=== PATIENT | male | born 1970 | race Caucasian/White ===

== ENCOUNTER 2018-02-10 10:40 | Emergency (ER) | payer SELFPAY ==
[2018-02-10] MEDS ORDERED: Sodium Chloride 0.9% 1,000 ML IV ONE (11:32)
[2018-02-10] MEDS ORDERED: Ondansetron 4 MG/2 ML SDV IVPUSH ONE (11:32)
[2018-02-10] MEDS ORDERED: Ketorolac 30 MG/ML SDV IVPUSH ONE (11:32)
--- NOTE | 2018-02-10 11:33 | EDM.PDOC ---
ED HPI GENERAL MEDICAL PROBLEM - General Chief Complaint: Abdominal Pain Stated Complaint: ABDOMINAL PAIN Time Seen by Provider: 02/10/18 11:32 Source of Information: Reports: Patient - History of Present Illness INITIAL COMMENTS - FREE TEXT/NARRATIVE: HISTORY AND PHYSICAL: History of present illness: []Patient presents with right flank pain for a week he does have history of passing ureteral stones in the remote past is been 20 years since his last similar pain no fever chills sweats he has had a couple episodes of vomiting last night pain is 2 out of 10 after Toradol Review of systems: As per history of present illness and below otherwise all systems reviewed and negative. Past medical history: As per history of present illness and as reviewed below otherwise noncontributory. Surgical history: As per history of present illness and as reviewed below otherwise noncontributory. Social history: No reported history of drug or alcohol abuse. Family history: As per history of present illness and as reviewed below otherwise noncontributory. Physical exam: HEENT: Atraumatic, normocephalic, pupils reactive, negative for conjunctival pallor or scleral icterus, mucous membranes moist, throat clear, neck supple, nontender, trachea midline. Lungs: Clear to auscultation, breath sounds equal bilaterally, chest nontender. Heart: S1S2, regular, negative for clicks, rubs, or JVD. Abdomen: Soft, nondistended, nontender. Negative for masses or hepatosplenomegaly. Negative for costovertebral tenderness. Pelvis: Stable nontender. Genitourinary: Deferred. Rectal: Deferred. Extremities: Atraumatic, negative for cords or calf pain. Neurovascular unremarkable. Neuro: Awake, alert, oriented. Cranial nerves II through XII unremarkable. Cerebellum unremarkable. Motor and sensory unremarkable throughout. Exam nonfocal. Diagnostics: [CBC CMP UA lipase troponin ]CT abdomen pelvis contrast Therapeutics: [Liter normal saline bolus Zofran 8 mg IV Toradol 30 mg IV ] [place] Zofran Flomax Keflex prophylaxis Strain urine I did make several attempts to contact urology ER referral for urology Impression: 5 mm ureteral stone on the right 1 week Definitive disposition and diagnosis as appropriate pending reevaluation and review of above. RIght FLank Pain Score (Numeric/FACES): 3 - Related Data Allergies Allergy/AdvReac Type Severity Reaction Status Date / Time grass pollen-perennial rye, Allergy Other Verified 06/15/14 09:44 standar [grass poll-perennial rye,std] Home Meds: Home Meds traMADol [Ultram] 1 - 2 tab PO Q4H PRN 02/10/18 [History] Past Medical History Genitourinary History: Reports: Renal Calculus - Infectious Disease History Infectious Disease History: Reports: Chicken Pox, Shingles Social & Family History - Family History Family Medical History: Noncontributory - Tobacco Use Smoking Status *Q: Never Smoker Second Hand Smoke Exposure: No - Caffeine Use Caffeine Use: Reports: Tea - Recreational Drug Use Recreational Drug Use: No ED ROS GENERAL - Review of Systems Review Of Systems: See Below ED EXAM, GENERAL - Physical Exam Exam: See Below Course - Vital Signs Last Recorded V/S: Last Vital Signs Temp 98.0 F 02/10/18 11:01 Pulse 86 02/10/18 11:01 Resp 16 02/10/18 11:01 BP 121/69 02/10/18 11:01 Pulse Ox 99 02/10/18 11:01 - Orders/Labs/Meds Orders: Active Orders 24 hr Category Date Time Status CULTURE URINE [RM] Stat Lab 02/10/18 13:09 Received Tamsulosin [Flomax] Med 02/10/18 13:19 Once 0.4 mg PO ONETIME ONE Medication Orders Tamsulosin HCl (Flomax) 0.4 mg PO ONETIME ONE Last Admin: 02/10/18 13:42 Dose: 0.4 mg Labs: Laboratory Tests 02/10/18 02/10/18 02/10/18 Range/Units 11:25 11:25 11:26 WBC 7.58 (4.0-11.0) K/uL RBC 4.84 (4.50-5.90) M/uL Hgb 13.9 (13.0-17.0) g/dL Hct 41.1 (38.0-50.0) % MCV 84.9 (80.0-98.0) fL MCH 28.7 (27.0-32.0) pg MCHC 33.8 (31.0-37.0) g/dL RDW Std Deviation 44.7 (28.0-62.0) fl RDW Coeff of [place] 14 (11.0-15.0) % Plt Count 184 (150-400) K/uL MPV 10.20 (7.40-12.00) fL Neut % (Auto) 64.7 (48.0-80.0) % Lymph % (Auto) 20.2 (16.0-40.0) % [place] % (Auto) 12.1 (0.0-15.0) % Eos % (Auto) 2.6 (0.0-7.0) % Baso % (Auto) 0.4 (0.0-1.5) % Neut # (Auto) 4.9 (1.4-5.7) K/uL Lymph # (Auto) 1.5 (0.6-2.4) K/uL [place] # (Auto) 0.9 H (0.0-0.8) K/uL Eos # (Auto) 0.2 (0.0-0.7) K/uL Baso # (Auto) 0.0 (0.0-0.1) K/uL Nucleated RBC % 0.0 /100WBC Nucleated RBCs # 0 K/uL Sodium 140 (136-148) mmol/L Potassium 3.6 (3.5-5.1) mmol/L Chloride 104 (98-107) mmol/L Carbon Dioxide 26.0 (21.0-32.0) mmol/L BUN 12 (7.0-18.0) mg/dL Creatinine 1.4 H (0.8-1.3) mg/dL Est Cr Clr Drug Dosing 70.06 mL/min Estimated GFR (MDRD) 53.9 ml/min Glucose 124 H (74-106) mg/dL Calcium 8.8 (8.5-10.1) mg/dL Total Bilirubin 0.8 (0.2-1.0) mg/dL AST 13 L (15-37) IU/L ALT 26 (14-63) IU/L Alkaline Phosphatase 57 (46-116) U/L Troponin I < 0.050 (0.000-0.056) ng/mL Total Protein 7.6 (6.4-8.2) g/dL Albumin 3.8 (3.4-5.0) g/dL Globulin 3.8 H (2.0-3.5) g/dL Albumin/Globulin Ratio 1.0 L (1.3-2.8) Lipase 140 (73-393) U/L Urine Color YELLOW Urine Appearance CLEAR Urine pH 6.0 (5.0-8.0) Ur Specific [place] 1.020 (1.001-1.035) Urine Protein 30 (NEGATIVE) mg/dL Urine Glucose (UA) NEGATIVE (NEGATIVE) mg/dL Urine Ketones NEGATIVE (NEGATIVE) mg/dL Urine Occult Blood MODERATE (NEGATIVE) Urine Nitrite NEGATIVE (NEGATIVE) Urine Bilirubin NEGATIVE (NEGATIVE) Urine Urobilinogen 0.2 (<2.0) EU/dL Ur Leukocyte Esterase NEGATIVE (NEGATIVE) Urine RBC 1-4 (0-2/HPF) Urine WBC 2-4 (0-5/HPF) Ur Epithelial Cells OCCASIONAL (NONE-FEW) Amorphous Sediment LIGHT (NEGATIVE) Urine Bacteria FEW (NEGATIVE) Hyaline Casts 1-2 (0-2/LPF) Urine Mucus MODERATE (NONE-MOD) Meds: Medications Generic Name Dose Route Start Last Admin Trade Name Freq PRN Reason Stop Dose Admin Tamsulosin HCl 0.4 mg 02/10/18 13:19 02/10/18 13:42 Flomax PO 0.4 mg ONETIME ONE Administration Discontinued Medications Generic Name Dose Route Start Last Admin Trade Name Freq PRN Reason Stop Dose Admin Sodium Chloride 1,000 mls @ 999 mls/hr 02/10/18 11:32 02/10/18 11:50 Normal Saline IV 02/10/18 12:32 999 mls/hr STAT ONE Administration Ketorolac Tromethamine 30 mg 02/10/18 11:32 02/10/18 11:51 Toradol IVPUSH 02/10/18 11:33 30 mg ONETIME ONE Administration Methylprednisolone Sodium Succinate 125 mg 02/10/18 13:19 02/10/18 13:42 Solu-Medrol IVPUSH 02/10/18 13:20 125 mg ONETIME ONE Administration Ondansetron HCl 8 mg 02/10/18 11:32 02/10/18 11:54 Zofran IVPUSH 02/10/18 11:33 8 mg ONETIME ONE Administration Departure - Departure Time of Disposition: 14:30 Disposition: Home, Self-Care 01 Condition: Good Clinical Impression: Ureteral stone - Discharge Information Referrals: Daren Higgins MD [Primary Care Provider] - Forms: ED Department Discharge Additional Instructions: Medication as prescribed return if symptoms persist or worsen or new concerning such as fever; temperature over 100.4 with prompt immediate return to ER Urology referral provided [facility] - Urology [address] [place] [id number] The following information is given to patients seen in the emergency department who are being discharged to home. This information is to outline your options for follow-up care. We provide all patients seen in our emergency department with a follow-up referral. The need for follow-up, as well as the timing and circumstances, are variable depending upon the specifics of your emergency department visit. If you don't have a primary care physician on staff, we will provide you with a referral. We always advise you to contact your personal physician following an emergency department visit to inform them of the circumstance of the visit and for follow-up with them and/or the need for any referrals to a consulting specialist. The emergency department will also refer you to a specialist when appropriate. This referral assures that you have the opportunity for follow-up care with a specialist. All of these measure are taken in an effort to provide you with optimal care, which includes your follow-up. Under all circumstances we always encourage you to contact your private physician who remains a resource for coordinating your care. When calling for follow-up care, please make the office aware that this follow-up is from your recent emergency room visit. If for any reason you are refused follow-up, please contact the [facility] emergency department at and asked to speak to the emergency department charge nurse. - My Orders Last 24 Hours: My Active Orders 02/10/18 13:09 CULTURE URINE [RM] Stat 02/10/18 13:19 Tamsulosin [Flomax] 0.4 mg PO ONETIME ONE - Assessment/Plan Last 24 Hours: My Active Orders 02/10/18 13:09 CULTURE URINE [RM] Stat 02/10/18 13:19 Tamsulosin [Flomax] 0.4 mg PO ONETIME ONE
[2018-02-10 12:04] LABS: CHLORIDE,CL 104 mmol/L (98-107); SODIUM,NA 140 mmol/L (136-148)
[2018-02-10] MEDS ORDERED: methylPREDNISolone Sodium Succinate 125 MG/2 ML SDV IVPUSH ONE (13:19)
[2018-02-10] MEDS ORDERED: Tamsulosin 0.4 MG Cap.ER PO ONE (13:19)
--- NOTE | 2018-02-10 13:19 | CT ---
CT of the abdomen and pelvis without contrast. HISTORY: Pain TECHNIQUE: Axial CT images were obtained of the abdomen and pelvis without contrast. Coronal and sagi ttal reconstructions obtained. FINDINGS: The lung bases are clear, no pleural effusion. Several tiny hepatic hypodensities are noted likely represent cysts. Spleen, adrenal glands, and panc reas appear unremarkable for noncontrast examination. The gallbladder appears normal. There is no bu lky retroperitoneal lymphadenopathy. No abdominal ascites. There is a 5 mm obstructing stone within the proximal right ureter with [id number] proximal hyd ronephrosis. Otherwise tiny nonobstructing nephrolithiasis noted. The large and small bowel are normal in caliber without evidence of obstruction. The appendix appears normal. Mild diverticulosis without evidence of diverticulitis. There is no bulky pelvic lymphadenop athy. No free fluid. No free air. The urinary bladder appears normal. Prostate is mildly prominent. Mild subchondral sclerosis noted within the hips bilaterally. IMPRESSION: 1. There is a 5 mm obstructing stone within the proximal right ureter. 2. Diverticulosis without evidence of diverticulitis. 3. Nonobstructing nephrolithiasis.
== END 2018-02-10 14:45 | disposition home or self-care (01) ==
LOC: MW.ED 10:40
DX: N20.2 Calculus of kidney with calculus of ureter (principal); Z91.09 Other allergy status, other than to drugs and biological substances
CPT/HCPCS: 36415; 74176; 80053; 81001; 83690; 84484; 85025; 87086; 96361; 96374; 96375; 99284; A9270; J1885; J2405; J2930; J7040

== ENCOUNTER 2018-02-16 08:16 | Day surgery (SDC) | payer SELFPAY ==
[~2018-02-16 08:16] MED LIST: Dexamethasone 4 MG/ML 5 ML MDV ONE; Lactated Ringers 1,000 ML IV SCH; Lidocaine 1% 0 ML ONE; Midazolam 1 MG/ML 2 ML SDV ONE; Ondansetron 4 MG/2 ML SDV ONE; Propofol 200 MG/20 ML SDV ONE; Sodium Chloride 0.9% 10 ML Syringe FLUSH PRN; Sodium Chloride 0.9% 2.5 ML Syringe FLUSH PRN; ceFAZolin 2 GM in Premix Bag 1 BAG IV ONE; ceFAZolin/Dextrose,Iso-Osmotic 2 GM/50 ML Duplex Bag IV ONE; fentaNYL 250 MCG/5 ML SDV ONE
[2018-02-16] MEDS ORDERED: Iopamidol 408 MG/ML 50 ML SDV ONE (08:22)
--- NOTE | 2018-02-16 09:01 | PCM.PREANE ---
Preanesthetic Assessment - Anesthesia/Transfusion/Family Hx Anesthesia History: No Prior Anesthesia Family History of Anesthesia Reaction: No Transfusion History: No Prior Transfusion(s) - Review of Systems General: No Symptoms Pulmonary: No Symptoms Cardiovascular: No Symptoms Gastrointestinal: No Symptoms Neurological: No Symptoms Other: Reports: None - Physical Assessment NPO Status Date: 02/15/18 O2 Sat by Pulse Oximetry: 97 Respiratory Rate: 16 Vital Signs: Last Vital Signs Temp 36.9 C 02/16/18 08:40 Pulse 75 02/16/18 08:40 Resp 16 02/16/18 08:40 BP 158/84 H 02/16/18 08:40 Pulse Ox 97 02/16/18 08:40 Height: 1.8 m Weight: 107.048 kg ASA Class: 2 Mental Status: Alert & Oriented x3 Airway Class: Mallampati = 1 Dentition: Reports: Normal Dentition ROM/Head Extension: Full Lungs: Clear to Auscultation, Normal Respiratory Effort Cardiovascular: Regular Rate, Regular Rhythm - Allergies Allergies/Adverse Reactions: Allergies Allergy/AdvReac Type Severity Reaction Status Date / Time grass pollen-perennial rye, Allergy Other Verified 06/15/14 09:44 standar [grass poll-perennial rye,std] - Anesthesia Plan Pre-Op Medication Ordered: None - Acknowledgements Anesthesia Type Planned: General Anesthesia Pt an Appropriate Candidate for the Planned Anesthesia: Yes Additional Comments: PMH: seasonal allergies, asthma only as a child PLAN GET PreAnesthesia Questionnaire Respiratory History: Reports: Asthma Other Respiratory History: hx of asthma as a child- mostly allergy related- has not had an inhaler for many years Gastrointestinal History: Reports: Other (See Below) Other Gastrointestinal History: occasional heartburn Genitourinary History: Reports: Renal Calculus Other Genitourinary History: passed a kidney stone about 20 years ago Neurological History: Reports: Other (See Below) Other Neuro History: hx of motion sickness Endocrine/Metabolic History: Reports: Obesity/BMI 30+ - Infectious Disease History Infectious Disease History: Reports: Chicken Pox, Shingles - SUBSTANCE USE Smoking Status *Q: Never Smoker Recreational Drug Use History: No - HOME MEDS Home Medications: Home Meds Hydrocodone/Acetaminophen [[place] 7.5-325 Tablet] 1 - 2 tab PO Q4H PRN 02/13/18 [ History] Ondansetron HCl [Zofran] 8 mg PO BID PRN 02/13/18 [History] Tamsulosin [Flomax] 0.8 mg PO BEDTIME 02/13/18 [History] - CURRENT (IN HOUSE) MEDS Current Meds: Current Medications Lactated Ringer's (Ringers, Lactated) 1,000 mls @ 100 mls/hr IV ASDIRECTED BA Last Admin: 02/16/18 08:51 Dose: 100 mls/hr Sodium Chloride (Saline Flush) 10 ml FLUSH ASDIRECTED PRN PRN Reason: Keep Vein Open Sodium Chloride (Saline Flush) 2.5 ml FLUSH ASDIRECTED PRN PRN Reason: Keep Vein Open Discontinued Medications Cefazolin Sodium/Dextrose (Ancef) Confirm Administered Dose 2 gm IV .STK-MED ONE Stop: 02/16/18 07:31 Cefazolin Sodium/Dextrose (Ancef) Confirm Administered Dose 2 gm IV .STK-MED ONE Stop: 02/16/18 08:12 Dexamethasone (Dexamethasone) Confirm Administered Dose 20 mg .ROUTE .STK-MED ONE Stop: 02/16/18 07:22 Fentanyl (Sublimaze) Confirm Administered Dose 250 mcg .ROUTE .STK-MED ONE Stop: 02/16/18 07:20 Fentanyl (Sublimaze) Confirm Administered Dose 250 mcg .ROUTE .STK-MED ONE Stop: 02/16/18 08:12 Cefazolin Sodium/Dextrose 2 gm (/ Premix) 50 mls @ 100 mls/hr IV ONCALL ONE Stop: 02/16/18 00:30 Lidocaine HCl (Xylocaine-Mpf 1%) Confirm Administered Dose 5 mls @ as directed .ROUTE .STK-MED ONE Stop: 02/16/18 07:22 Lidocaine HCl (Xylocaine-Mpf 1%) Confirm Administered Dose 5 mls @ as directed .ROUTE .STK-MED ONE Stop: 02/16/18 08:12 Iopamidol (Isovue-200 (41%)) Confirm Administered Dose 50 ml .ROUTE .STK-MED ONE Stop: 02/16/18 08:23 Midazolam HCl (Versed 1 Mg/Ml) Confirm Administered Dose 2 mg .ROUTE .STK-MED ONE Stop: 02/16/18 07:20 Midazolam HCl (Versed 1 Mg/Ml) Confirm Administered Dose 2 mg .ROUTE .STK-MED ONE Stop: 02/16/18 08:12 Ondansetron HCl (Zofran) Confirm Administered Dose 4 mg .ROUTE .STK-MED ONE Stop: 02/16/18 07:22 Ondansetron HCl (Zofran) Confirm Administered Dose 4 mg .ROUTE .STK-MED ONE Stop: 02/16/18 08:12 Propofol (Diprivan 20 Ml) Confirm Administered Dose 200 mg .ROUTE .STK-MED ONE Stop: 02/16/18 07:20 Propofol (Diprivan 20 Ml) Confirm Administered Dose 200 mg .ROUTE .STK-MED ONE Stop: 02/16/18 08:12
[2018-02-16] MEDS ORDERED: Neostigmine Methylsulfate 1 MG/ML 5 ML Syringe ONE (10:51)
[2018-02-16] MEDS ORDERED: Dexamethasone 4 MG/ML 5 ML MDV ONE (10:52)
[2018-02-16] MEDS ORDERED: Glycopyrrolate 0.2 MG/ML SDV ONE (10:52)
[2018-02-16] MEDS ORDERED: Desflurane 240 ML Bottle ONE (10:58)
[2018-02-16] MEDS ORDERED: Metoprolol Tartrate 5 MG/5 ML SDV ONE (12:14)
[2018-02-16] MEDS: fentaNYL 100 MCG/2 ML SDV IVPUSH PRN ×2 (12:50→12:55)
--- NOTE | 2018-02-16 12:57 | PCM.POSTAN ---
POST ANESTHESIA ASSESSMENT - MENTAL STATUS Mental Status: Alert, Oriented - RESPIRATORY Respiratory Status: Respiratory Rate WNL, Airway Patent, O2 Saturation Stable - CARDIOVASCULAR CV Status: Pulse Rate WNL, Blood Pressure Stable - GASTROINTESTINAL GI Status: No Symptoms - PAIN Pain Score: 3 - POST OP HYDRATION Hydration Status: Adequate & Stable
--- NOTE | 2018-02-16 14:01 | PCM48HPAN ---
Post Anesthesia Note - EVALUATION WITHIN 48HRS OF ANESTHETIC Vital Signs in Normal Range: Yes Patient Participated in Evaluation: Yes Respiratory Function Stable: Yes Airway Patent: Yes Cardiovascular Function Stable: Yes Hydration Status Stable: Yes Pain Control Satisfactory: Yes Nausea and Vomiting Control Satisfactory: Yes Mental Status Recovered: Yes Resp Rate: 16
[2018-02-16] MEDS ORDERED: Acetaminophen/HYDROcodone 325-7.5 MG Tab PO PRN (14:10)
--- NOTE | 2018-02-16 14:56 | OR ---
SURGEON: Jaleesa Yeboah M.D. DATE OF PROCEDURE: 02/16/2018 PREOPERATIVE DIAGNOSIS: Right mid ureteral stone, 5.3 mm. POSTOPERATIVE DIAGNOSIS: Right mid ureteral stone, 5.3 mm. OPERATION: Right ureteroscopy, laser lithotripsy, stone removal, and double-J stent placement. DESCRIPTION OF PROCEDURE: The patient was given general anesthesia. He was in dorsal lithotomy position. Prepped and draped in sterile drapes. Cystourethroscopy was done and that was normal. The Glidewire was advanced alongside the stone all the way up into the renal pelvis. The Accordion was advanced above the stone and opened. The lower ureter was dilated using a UroMax II balloon dilator to approximately 15-[place]. The area just below the stone was also narrow, so that was dilated. A rigid ureteroscope was attempted, but that would not pass, so a flexible ureteroscope was advanced over a guidewire all the way up to the stone which was then broken up into 3 or 4 pieces. These were all taken out. With that done, the Accordion was opened up and removed. A guidewire was advanced over which a 6-[place] 26 centimeter double-J stent was placed. The bladder was emptied, and the patient was moved to recovery room in good condition. PLAN: I will see him in the office in 2 weeks for cystoscopy and double-J stent removal. MARICHUY / ANDREY /[id number]
--- NOTE | 2018-02-16 15:16 | CR ---
EXAMINATION: Abdomen HISTORY: Kidney stone COMPARISON: 02/10/2018 TECHNIQUE: AP views FINDINGS: Again noted is a small 4 mm stone projecting over the region of the mid right ureter. There is a punctate nonobstructing stone projecting over the upper pole of the left kidney. Nonobstructive bowel gas pattern. No organomegaly. Osseous structures appear normal. IMPRESSION: 1. Stable calculus projecting over the mid right ureter, likely unchanged. 2. Punctate nonobstructing right renal stone.
--- NOTE | 2018-02-16 15:55 | CR ---
EXAMINATION: Ureteroscopy HISTORY: Stone removal COMPARISON: Same day radiographs TECHNIQUE: 5 fluoroscopic images provided. FINDINGS/IMPRESSION: Operative control film demonstrates removal of a mid right ureteral stone and walter bsequent stent placement.
[2018-02-17] MEDS ORDERED: Ondansetron 4 MG/2 ML SDV ONE (08:52)
[2018-02-17] MEDS ORDERED: fentaNYL 250 MCG/5 ML SDV ONE (08:52)
[2018-02-17] MEDS ORDERED: Midazolam 1 MG/ML 2 ML SDV ONE (08:52)
[2018-02-17] MEDS ORDERED: Propofol 200 MG/20 ML SDV ONE (08:56)
[2018-02-17] MEDS ORDERED: Dexamethasone 4 MG/ML 5 ML MDV ONE (10:05)
[2018-02-17] MEDS ORDERED: Furosemide 40 MG/4 ML VIAL ONE (10:49)
== END 2018-02-16 14:40 | disposition home or self-care (01) ==
LOC: MW.SDS 08:16
PROVIDERS: ATTEND Urology
DX: N20.1 Calculus of ureter (principal); J45.909 Unspecified asthma, uncomplicated; E66.9 Obesity, unspecified; Z68.30 Body mass index [BMI] 30.0-30.9, adult; Z87.442 Personal history of urinary calculi; Z79.899 Other long term (current) drug therapy
CPT/HCPCS: 52356; 74018; 76001; A9270; J0690; J1100; J2250; J2405; J2704; J3010; J3490; J7120; Q9966; C1769; C2625

== ENCOUNTER 2018-02-17 04:30 | Observation (INO) | payer SELFPAY ==
--- NOTE | 2018-02-17 04:43 | EDM.PDOC ---
ED HPI GENERAL MEDICAL PROBLEM - General Chief Complaint: Abdominal Pain Stated Complaint: PAIN FROM KIDNEY PAIN SURGERY Time Seen by Provider: 02/17/18 04:42 Source of Information: Reports: Patient History Limitations: Reports: No Limitations - History of Present Illness INITIAL COMMENTS - FREE TEXT/NARRATIVE: HISTORY AND PHYSICAL: History of present illness: 47-year-old male presenting to the emergency department with chief complaint of right flank pain and pain with urination status post laser lithotripsy 02/16/18. Patient states that he had laser lithotripsy yesterday by Dr. Yeboah around 2: 30 pm. After the surgery he was feeling significantly improved but did have some burning with urination but overall much improved. This evening he began to have increased right lower flank pain radiating into his right groin. Also states that he has had increased pain with urination. Has past some blood clots. States it is just shooting stabbing pain. It is constant at 4 at 10 and 10 out of 10 when he urinates. He denies any associated fevers but has been sweaty. He currently is on Keflex as well as Flomax by Dr. Yeboah. Denies any bloody stool or dark tarry stools. Patient currently denies any chest pain, palpitations, shortness of breath, syncopal episodes, episodes. On exam there is no left CVA tenderness, There is significant right lower quadrant pain extending into the right groin. Abdomen soft patient is guarding with palpation in the right lower artery. CBC showed leukocytosis of 15,000. Patient was started on Cipro IV as well as blood cultures and lactate taken. Urinalysis showed some worsening of kidney function from previous. With a creatinine of 1.7 up from 1.4. GFR also decreased to 43 CT of the abdomen did show interval placement of a right double-J ureteral stent. Proximal portion of the stent appeared lower than expected and is in the proximal right ureter rather than right intrarenal collecting system. In addition no urolith was identified along the course of the stent. There was a significant amount of gas and fluid in the retroperitoneum with thickening of throat is fashion in the lateral conal fascia. Did talk to radiologist who suspected that ureteral injury was possible. Did call Dr. Hinton, urologist, and advised him of the findings. He is on his way to the emergency room emergently to see the patient. Review of systems: As per history of present illness and below otherwise all systems reviewed and negative. Past medical history: As per history of present illness and as reviewed below otherwise noncontributory. Surgical history: As per history of present illness and as reviewed below otherwise noncontributory. Social history: No reported history of drug or alcohol abuse. Family history: As per history of present illness and as reviewed below otherwise noncontributory. Physical exam: HEENT: Atraumatic, normocephalic, pupils reactive, negative for conjunctival pallor or scleral icterus, mucous membranes moist, throat clear, neck supple, nontender, trachea midline. Lungs: Clear to auscultation, breath sounds equal bilaterally, chest nontender. Heart: S1S2, regular, negative for clicks, rubs, or JVD. Abdomen: Soft, nondistended, RLQ and right flank pain on palpation. Negative for masses or hepatosplenomegaly. Negative for costovertebral tenderness. Pelvis: Stable nontender. Genitourinary: Deferred. Rectal: Deferred. Extremities: Atraumatic, negative for cords or calf pain. Neurovascular unremarkable. Neuro: Awake, alert, oriented. Cranial nerves II through XII unremarkable. Cerebellum unremarkable. Motor and sensory unremarkable throughout. Exam nonfocal. Diagnostics: CBC, CMP, UA/UC, CT abdomen and pelvis Therapeutics: 1 L normal saline, 50 g fentanyl IV 1, 4 mg zofran IV x1, 2mg Dilaudid IV 1, Cipro 400 mg IV 1 Impression: Right lower quadrant pain status post laser lithotripsy uretral injury Plan: Dr. Yeboah took over care of patient and he was admitted to his service for surgery. Definitive disposition and diagnosis as appropriate pending reevaluation and review of above. Pelvic Pain Score (Numeric/FACES): 2 - Related Data Allergies Allergy/AdvReac Type Severity Reaction Status Date / Time grass pollen-perennial rye, Allergy Other Verified 02/17/18 04:45 standar [grass poll-perennial rye,std] Home Meds: Home Meds Hydrocodone/Acetaminophen [[place] 7.5-325 Tablet] 1 - 2 tab PO Q4H PRN 02/13/18 [ History] Ondansetron HCl [Zofran] 8 mg PO BID PRN 02/13/18 [History] Tamsulosin [Flomax] 0.8 mg PO BEDTIME 02/13/18 [History] cephALEXin [Keflex] 1 cap PO BID 02/17/18 [History] Past Medical History Respiratory History: Reports: Asthma Other Respiratory History: hx of asthma as a child- mostly allergy related- has not had an inhaler for many years Gastrointestinal History: Reports: Other (See Below) Other Gastrointestinal History: occasional heartburn Genitourinary History: Reports: Renal Calculus Other Genitourinary History: passed a kidney stone about 20 years ago Neurological History: Reports: Other (See Below) Other Neuro History: hx of motion sickness Endocrine/Metabolic History: Reports: Obesity/BMI 30+ - Infectious Disease History Infectious Disease History: Reports: Chicken Pox, Shingles Social & Family History - Family History Family Medical History: Noncontributory - Caffeine Use Caffeine Use: Reports: Tea ED ROS GENERAL - Review of Systems Review Of Systems: ROS reveals no pertinent complaints other than HPI. ED EXAM, GENERAL - Physical Exam Exam: See Below Course - Vital Signs Last Recorded V/S: Last Vital Signs Temp 98.4 F 02/18/18 16:00 Pulse 80 02/18/18 16:00 Resp 16 02/18/18 16:00 BP 130/76 02/18/18 16:00 Pulse Ox 96 02/18/18 16:00 - Orders/Labs/Meds Labs: Laboratory Tests 02/17/18 02/17/18 02/17/18 Range/Units 05:04 05:04 05:20 WBC 15.26 H (4.0-11.0) K/uL RBC 4.67 (4.50-5.90) M/uL Hgb 13.4 (13.0-17.0) g/dL Hct 39.8 (38.0-50.0) % MCV 85.2 (80.0-98.0) fL MCH 28.7 (27.0-32.0) pg MCHC 33.7 (31.0-37.0) g/dL RDW Std Deviation 45.5 (28.0-62.0) fl RDW Coeff of Clara 15 (11.0-15.0) % Plt Count 230 (150-400) K/uL MPV 9.90 (7.40-12.00) fL Neut % (Auto) 88.0 H (48.0-80.0) % Lymph % (Auto) 6.0 L (16.0-40.0) % [place] % (Auto) 5.9 (0.0-15.0) % Eos % (Auto) 0.0 (0.0-7.0) % Baso % (Auto) 0.1 (0.0-1.5) % Neut # (Auto) 13.4 H (1.4-5.7) K/uL Lymph # (Auto) 0.9 (0.6-2.4) K/uL [place] # (Auto) 0.9 H (0.0-0.8) K/uL Eos # (Auto) 0.0 (0.0-0.7) K/uL Baso # (Auto) 0.0 (0.0-0.1) K/uL Nucleated RBC % 0.0 /100WBC Nucleated RBCs # 0 K/uL Lactate (0.20-2.00) mmol/L Sodium 135 L (136-148) mmol/L Potassium 4.1 (3.5-5.1) mmol/L Chloride 102 (98-107) mmol/L Carbon Dioxide 25.6 (21.0-32.0) mmol/L BUN 19 H (7.0-18.0) mg/dL Creatinine 1.7 H (0.8-1.3) mg/dL Est Cr Clr Drug Dosing 57.69 mL/min Estimated GFR (MDRD) 43.1 ml/min Glucose 151 H (74-106) mg/dL Calcium 9.0 (8.5-10.1) mg/dL Total Bilirubin 0.8 (0.2-1.0) mg/dL AST 8 L (15-37) IU/L ALT 15 (14-63) IU/L Alkaline Phosphatase 61 (46-116) U/L Total Protein 7.5 (6.4-8.2) g/dL Albumin 3.9 (3.4-5.0) g/dL Globulin 3.6 H (2.0-3.5) g/dL Albumin/Globulin Ratio 1.1 L (1.3-2.8) Urine Color YELLOW Urine Appearance CLOUDY Urine pH 6.0 (5.0-8.0) Ur Specific [place] 1.020 (1.001-1.035) Urine Protein 100 (NEGATIVE) mg/dL Urine Glucose (UA) NEGATIVE (NEGATIVE) mg/dL Urine Ketones 40 H (NEGATIVE) mg/dL Urine Occult Blood LARGE H (NEGATIVE) Urine Nitrite NEGATIVE (NEGATIVE) Urine Bilirubin NEGATIVE (NEGATIVE) Urine Urobilinogen 0.2 (<2.0) EU/dL Ur Leukocyte Esterase SMALL (NEGATIVE) Urine RBC 105-110 (0-2/HPF) Urine WBC 1-4 (0-5/HPF) Ur Epithelial Cells RARE (NONE-FEW) Urine Bacteria RARE (NEGATIVE) 02/17/18 Range/Units 06:25 WBC (4.0-11.0) K/uL RBC (4.50-5.90) M/uL Hgb (13.0-17.0) g/dL Hct (38.0-50.0) % MCV (80.0-98.0) fL MCH (27.0-32.0) pg MCHC (31.0-37.0) g/dL RDW Std Deviation (28.0-62.0) fl RDW Coeff of Clara (11.0-15.0) % Plt Count (150-400) K/uL MPV (7.40-12.00) fL Neut % (Auto) (48.0-80.0) % Lymph % (Auto) (16.0-40.0) % [place] % (Auto) (0.0-15.0) % Eos % (Auto) (0.0-7.0) % Baso % (Auto) (0.0-1.5) % Neut # (Auto) (1.4-5.7) K/uL Lymph # (Auto) (0.6-2.4) K/uL [place] # (Auto) (0.0-0.8) K/uL Eos # (Auto) (0.0-0.7) K/uL Baso # (Auto) (0.0-0.1) K/uL Nucleated RBC % /100WBC Nucleated RBCs # K/uL Lactate 1.1 (0.20-2.00) mmol/L Sodium (136-148) mmol/L Potassium (3.5-5.1) mmol/L Chloride (98-107) mmol/L Carbon Dioxide (21.0-32.0) mmol/L BUN (7.0-18.0) mg/dL Creatinine (0.8-1.3) mg/dL Est Cr Clr Drug Dosing mL/min Estimated GFR (MDRD) ml/min Glucose (74-106) mg/dL Calcium (8.5-10.1) mg/dL Total Bilirubin (0.2-1.0) mg/dL AST (15-37) IU/L ALT (14-63) IU/L Alkaline Phosphatase (46-116) U/L Total Protein (6.4-8.2) g/dL Albumin (3.4-5.0) g/dL Globulin (2.0-3.5) g/dL Albumin/Globulin Ratio (1.3-2.8) Urine Color Urine Appearance Urine pH (5.0-8.0) Ur Specific [place] (1.001-1.035) Urine Protein (NEGATIVE) mg/dL Urine Glucose (UA) (NEGATIVE) mg/dL Urine Ketones (NEGATIVE) mg/dL Urine Occult Blood (NEGATIVE) Urine Nitrite (NEGATIVE) Urine Bilirubin (NEGATIVE) Urine Urobilinogen (<2.0) EU/dL Ur Leukocyte Esterase (NEGATIVE) Urine RBC (0-2/HPF) Urine WBC (0-5/HPF) Ur Epithelial Cells (NONE-FEW) Urine Bacteria (NEGATIVE) Meds: Medications Discontinued Medications Generic Name Dose Route Start Last Admin Trade Name Freq PRN Reason Stop Dose Admin Acetaminophen 650 mg 02/17/18 14:50 02/17/18 23:01 Tylenol PO 650 mg Q4H PRN Administration Headache Bacitracin 1 gm 02/17/18 14:00 02/18/18 17:50 Bacitracin Oint TOP 1 gm TID BA Administration Belladonna Alkaloids/Opium 1 supp 02/17/18 11:29 B & O Supprettes No. 15a RECTAL Q6H PRN Bladder Spasms Desflurane Confirm 02/18/18 11:42 Suprane Administered 02/18/18 11:43 Dose 240 ml .ROUTE .STK-MED ONE Ephedrine Sulfate Confirm 02/18/18 11:34 Ephedrine Sulfate Administered 02/18/18 11:35 Dose 50 mg .ROUTE .STK-MED ONE Fentanyl 50 mcg 02/17/18 05:06 02/17/18 05:12 Sublimaze IVPUSH 02/17/18 05:07 50 mcg ONETIME ONE Administration Fentanyl Confirm 02/18/18 09:18 Sublimaze Administered 02/18/18 09:19 Dose 100 mcg .ROUTE .STK-MED ONE Fentanyl Confirm 02/18/18 11:19 Sublimaze Administered 02/18/18 11:20 Dose 100 mcg .ROUTE .STK-MED ONE Glycopyrrolate Confirm 02/18/18 11:38 Robinul Administered 02/18/18 11:39 Dose 0.2 mg .ROUTE .STK-MED ONE Glycopyrrolate Confirm 02/18/18 11:38 Robinul Administered 02/18/18 11:39 Dose 0.2 mg .ROUTE .STK-MED ONE Hydromorphone HCl 2 mg 02/17/18 05:25 02/17/18 05:31 Dilaudid IVPUSH 02/17/18 05:26 2 mg ONETIME ONE Administration Hydromorphone HCl 2 mg 02/17/18 06:52 02/17/18 07:00 Dilaudid IVPUSH 02/17/18 06:53 2 mg ONETIME ONE Administration Hydromorphone HCl 2 mg 02/17/18 12:53 Dilaudid IVPUSH Q4H PRN pain Hydromorphone HCl 2 mg 02/17/18 13:15 02/18/18 09:27 Dilaudid IVPUSH 2 mg Q4H PRN Administration pain Sodium Chloride 1,000 mls @ 999 mls/hr 02/17/18 05:11 02/17/18 05:18 Normal Saline IV 02/17/18 06:11 999 mls/hr STAT ONE Administration Ciprofloxacin/Dextrose 400 mg/ 200 mls @ 200 mls/hr 02/17/18 06:00 02/18/18 17:50 Premix IV 200 mls/hr Q12H BA Administration Sodium Chloride 100 mls @ 125 mls/hr 02/17/18 07:00 Normal Saline IV ASDIRECTED BA Sodium Chloride 1,000 mls @ 125 mls/hr 02/17/18 07:15 02/17/18 07:02 Normal Saline IV 125 mls/hr ASDIRECTED BA Administration Potassium Chloride/Dextrose/Sod Cl 1,000 mls @ 125 mls/hr 02/17/18 11:30 08/03 06:49 D5 1/2 Ns W/ 20 Meq/L Kcl IV 125 mls/hr ASDIRECTED BA Administration Cefazolin Sodium/Dextrose 1 gm 50 mls @ 100 mls/hr 02/17/18 13:00 02/17/18 13 :19 / Premix IV 100 mls/hr Q8H BA Administration Tobramycin 100 mg/ Dextrose/ 52.5 mls @ 105 mls/hr 02/17/18 14:00 02/18/18 14 :06 Water IV 105 mls/hr Q12H BA Administration Lidocaine HCl Confirm 02/18/18 09:19 Xylocaine-Mpf 1% Administered 02/18/18 09:20 Dose 5 mls @ as directed .ROUTE .STK-MED ONE Iopamidol Confirm 02/17/18 09:26 Isovue-200 (41%) Administered 02/17/18 09:27 Dose 50 ml .ROUTE .STK-MED ONE Iopamidol Confirm 02/18/18 09:16 Isovue-200 (41%) Administered 02/18/18 09:17 Dose 50 ml .ROUTE .STK-MED ONE Lidocaine HCl Confirm 02/18/18 09:16 Xylocaine 2% Jelly Administered 02/18/18 09:17 Dose 30 ml .ROUTE .STK-MED ONE Methylene Blue Confirm 02/17/18 10:39 Provayblue Administered 02/17/18 10:40 Dose 50 mg .ROUTE .STK-MED ONE Midazolam HCl Confirm 02/18/18 09:17 Versed 1 Mg/Ml Administered 02/18/18 09:18 Dose 2 mg .ROUTE .STK-MED ONE Neostigmine Methylsulfate Confirm 02/18/18 11:38 Neostigmine Administered 02/18/18 11:39 Dose 5 mg .ROUTE .STK-MED ONE Neostigmine Methylsulfate Confirm 02/18/18 11:38 Neostigmine Administered 02/18/18 11:39 Dose 5 mg .ROUTE .STK-MED ONE Ondansetron HCl Confirm 02/17/18 05:22 02/17/18 05:36 Zofran Administered 02/17/18 05:23 Not Given Dose 4 mg .ROUTE .STK-MED ONE Ondansetron HCl 4 mg 02/17/18 05:27 02/17/18 05:31 Zofran IVPUSH 02/17/18 05:28 4 mg ONETIME ONE Administration Ondansetron HCl 4 mg 02/17/18 14:50 Zofran IVPUSH Q4H PRN Nausea/Vomiting Ondansetron HCl Confirm 02/18/18 09:19 Zofran Administered 02/18/18 09:20 Dose 4 mg .ROUTE .STK-MED ONE Propofol Confirm 02/18/18 09:20 Diprivan 20 Ml Administered 02/18/18 09:21 Dose 200 mg .ROUTE .STK-MED ONE Rocuronium [place] Confirm 02/18/18 09:20 Zemuron Administered 02/18/18 09:21 Dose 100 mg .ROUTE .STK-MED ONE Tobramycin 160 mg 02/17/18 10:00 Nebcin .ROUTE 02/17/18 10:01 .STK-MED ONE Departure - Departure Time of Disposition: 01:15 (02/18/[address] Yeboah) Disposition: Admitted As Inpatient 64 Condition: Fair Clinical Impression: Right flank pain Urethral injury Qualifiers: Encounter type: initial encounter Qualified Code(s): S37.30XA - Unspecified injury of urethra, initial encounter - Discharge Information
[2018-02-17] MEDS ORDERED: fentaNYL 100 MCG/2 ML SDV IVPUSH ONE (05:06)
[2018-02-17] MEDS ORDERED: Sodium Chloride 0.9% 1,000 ML IV ONE (05:11)
[2018-02-17] MEDS ORDERED: Ondansetron 4 MG/2 ML SDV ONE (05:22)
[2018-02-17] MEDS ORDERED: HYDROmorphone 1 MG/ML Syringe IVPUSH ONE (05:25)
[2018-02-17] MEDS ORDERED: Ondansetron 4 MG/2 ML SDV IVPUSH ONE (05:27)
[2018-02-17] MEDS: Ciprofloxacin in D5W 400 MG in Premix Bag 1 BAG IV SCH ×4 (06:44→19:15)
[2018-02-17] MEDS ORDERED: HYDROmorphone 2 MG/ML SDV IVPUSH ONE (06:52)
[2018-02-17] MEDS ORDERED: Sodium Chloride 0.9% 100 ML IV SCH (07:00)
[2018-02-17] MEDS ORDERED: Sodium Chloride 0.9% 1,000 ML IV SCH (07:15)
--- NOTE | 2018-02-17 09:11 | PCM.PREANE ---
Preanesthetic Assessment - Procedure Proposed Procedure: Cystoureteroscopy with stent removal/replacement - Anesthesia/Transfusion/Family Hx Anesthesia History: Prior Anesthesia Without Reaction Transfusion History: No Prior Transfusion(s) Intubation History: Unknown - Review of Systems General: Other (adominal / back pain) Pulmonary: No Symptoms (no adult asthma hx) Cardiovascular: No Symptoms Gastrointestinal: Abdominal Pain (low/back) Neurological: No Symptoms Other: Reports: Throat Pain (minor irritation from yesterday OET) - Physical Assessment NPO Status Date: 02/16/18 NPO Status Time: 18:00 (ice chips this am) O2 Sat by Pulse Oximetry: 98 Respiratory Rate: 16 Vital Signs: Last Vital Signs Temp 98 F 02/17/18 08:07 Pulse 99 02/17/18 08:07 Resp 16 02/17/18 08:07 BP 138/77 02/17/18 08:07 Pulse Ox 98 02/17/18 08:07 Height: 6 ft Weight: 231 lb 8 oz ASA Class: 2E Mental Status: Alert & Oriented x3 Airway Class: Mallampati = 2 Dentition: Reports: Normal Dentition Thyro-Mental Finger Breadths: 3 (white) Mouth Opening Finger Breadths: 3 ROM/Head Extension: Full Lungs: Clear to Auscultation, Normal Respiratory Effort Cardiovascular: Regular Rate, Regular Rhythm, No Murmurs - Lab Values: Laboratory Last Values WBC 15.26 K/uL (4.0-11.0) H 02/17/18 05:04 RBC 4.67 M/uL (4.50-5.90) 02/17/18 05:04 Hgb 13.4 g/dL (13.0-17.0) 02/17/18 05:04 Hct 39.8 % (38.0-50.0) 02/17/18 05:04 MCV 85.2 fL (80.0-98.0) 02/17/18 05:04 MCH 28.7 pg (27.0-32.0) 02/17/18 05:04 MCHC 33.7 g/dL (31.0-37.0) 02/17/18 05:04 RDW Std Deviation 45.5 fl (28.0-62.0) 02/17/18 05:04 RDW Coeff of Clara 15 % (11.0-15.0) 02/17/18 05:04 Plt Count 230 K/uL (150-400) 02/17/18 05:04 MPV 9.90 fL (7.40-12.00) 02/17/18 05:04 Neut % (Auto) 88.0 % (48.0-80.0) H 02/17/18 05:04 Lymph % (Auto) 6.0 % (16.0-40.0) L 02/17/18 05:04 [place] % (Auto) 5.9 % (0.0-15.0) 02/17/18 05:04 Eos % (Auto) 0.0 % (0.0-7.0) 02/17/18 05:04 Baso % (Auto) 0.1 % (0.0-1.5) 02/17/18 05:04 Neut # (Auto) 13.4 K/uL (1.4-5.7) H 02/17/18 05:04 Lymph # (Auto) 0.9 K/uL (0.6-2.4) 02/17/18 05:04 [place] # (Auto) 0.9 K/uL (0.0-0.8) H 02/17/18 05:04 Eos # (Auto) 0.0 K/uL (0.0-0.7) 02/17/18 05:04 Baso # (Auto) 0.0 K/uL (0.0-0.1) 02/17/18 05:04 Nucleated RBC % 0.0 /100WBC 02/17/18 05:04 Nucleated RBCs # 0 K/uL 02/17/18 05:04 Lactate 1.1 mmol/L (0.20-2.00) 02/17/18 06:25 Sodium 135 mmol/L (136-148) L 02/17/18 05:04 Potassium 4.1 mmol/L (3.5-5.1) 02/17/18 05:04 Chloride 102 mmol/L (98-107) 02/17/18 05:04 Carbon Dioxide 25.6 mmol/L (21.0-32.0) 02/17/18 05:04 BUN 19 mg/dL (7.0-18.0) H 02/17/18 05:04 Creatinine 1.7 mg/dL (0.8-1.3) H 02/17/18 05:04 Est Cr Clr Drug Dosing 57.69 mL/min 02/17/18 05:04 Estimated GFR (MDRD) 43.1 ml/min 02/17/18 05:04 Glucose 151 mg/dL (74-106) H 02/17/18 05:04 Calcium 9.0 mg/dL (8.5-10.1) 02/17/18 05:04 Total Bilirubin 0.8 mg/dL (0.2-1.0) 02/17/18 05:04 AST 8 IU/L (15-37) L 02/17/18 05:04 ALT 15 IU/L (14-63) 02/17/18 05:04 Alkaline Phosphatase 61 U/L (46-116) 02/17/18 05:04 Total Protein 7.5 g/dL (6.4-8.2) 02/17/18 05:04 Albumin 3.9 g/dL (3.4-5.0) 02/17/18 05:04 Globulin 3.6 g/dL (2.0-3.5) H 02/17/18 05:04 Albumin/Globulin Ratio 1.1 (1.3-2.8) L 02/17/18 05:04 Urine Color YELLOW 02/17/18 05:20 Urine Appearance CLOUDY 02/17/18 05:20 Urine pH 6.0 (5.0-8.0) 02/17/18 05:20 Ur Specific [place] 1.020 (1.001-1.035) 02/17/18 05:20 Urine Protein 100 mg/dL (NEGATIVE) 02/17/18 05:20 Urine Glucose (UA) NEGATIVE mg/dL (NEGATIVE) 02/17/18 05:20 Urine Ketones 40 mg/dL (NEGATIVE) H 02/17/18 05:20 Urine Occult Blood LARGE (NEGATIVE) H 02/17/18 05:20 Urine Nitrite NEGATIVE (NEGATIVE) 02/17/18 05:20 Urine Bilirubin NEGATIVE (NEGATIVE) 02/17/18 05:20 Urine Urobilinogen 0.2 EU/dL (<2.0) 02/17/18 05:20 Ur Leukocyte Esterase SMALL (NEGATIVE) 02/17/18 05:20 Urine RBC 105-110 (0-2/HPF) 02/17/18 05:20 Urine WBC 1-4 (0-5/HPF) 02/17/18 05:20 Ur Epithelial Cells RARE (NONE-FEW) 02/17/18 05:20 Urine Bacteria RARE (NEGATIVE) 02/17/18 05:20 - Allergies Allergies/Adverse Reactions: Allergies Allergy/AdvReac Type Severity Reaction Status Date / Time grass pollen-perennial rye, Allergy Other Verified 02/17/18 04:45 standar [grass poll-perennial rye,std] - Blood Blood Available: No Product(s) Available: None - Acknowledgements Anesthesia Type Planned: General Anesthesia (OET) Pt an Appropriate Candidate for the Planned Anesthesia: Yes Alternatives and Risks of Anesthesia Discussed w Pt/Guardian: Yes Pt/Guardian Understands and Agrees with Anesthesia Plan: Yes Additional Comments: discussed plan with patient and spouse PreAnesthesia Questionnaire Respiratory History: Reports: Asthma Other Respiratory History: hx of asthma as a child- mostly allergy related- has not had an inhaler for many years Gastrointestinal History: Reports: Other (See Below) Other Gastrointestinal History: occasional heartburn Genitourinary History: Reports: Renal Calculus Other Genitourinary History: passed a kidney stone about 20 years ago Neurological History: Reports: Other (See Below) Other Neuro History: hx of motion sickness Endocrine/Metabolic History: Reports: Obesity/BMI 30+ - Infectious Disease History Infectious Disease History: Reports: Chicken Pox, Shingles - SUBSTANCE USE Smoking Status *Q: Never Smoker Tobacco Use Within Last Twelve Months: No Second Hand Smoke Exposure: No Recreational Drug Use History: No - HOME MEDS Home Medications: Home Meds Hydrocodone/Acetaminophen [[place] 7.5-325 Tablet] 1 - 2 tab PO Q4H PRN 02/13/18 [ History] Ondansetron HCl [Zofran] 8 mg PO BID PRN 02/13/18 [History] Tamsulosin [Flomax] 0.8 mg PO BEDTIME 02/13/18 [History] cephALEXin [Keflex] 1 cap PO BID 02/17/18 [History] - CURRENT (IN HOUSE) MEDS Current Meds: Current Medications Ciprofloxacin/Dextrose 400 mg/ (Premix) 200 mls @ 200 mls/hr IV Q12H BA Last Admin: 02/17/18 06:44 Dose: 200 mls/hr Sodium Chloride (Normal Saline) 1,000 mls @ 125 mls/hr IV ASDIRECTED [facility] Last Admin: 02/17/18 07:02 Dose: 125 mls/hr Discontinued Medications Fentanyl (Sublimaze) 50 mcg IVPUSH ONETIME ONE Stop: 02/17/18 05:07 Last Admin: 02/17/18 05:12 Dose: 50 mcg Hydromorphone HCl (Dilaudid) 2 mg IVPUSH ONETIME ONE Stop: 02/17/18 05:26 Last Admin: 02/17/18 05:31 Dose: 2 mg Hydromorphone HCl (Dilaudid) 2 mg IVPUSH ONETIME ONE Stop: 02/17/18 06:53 Last Admin: 02/17/18 07:00 Dose: 2 mg Sodium Chloride (Normal Saline) 1,000 mls @ 999 mls/hr IV STAT ONE Stop: 02/17/18 06:11 Last Admin: 02/17/18 05:18 Dose: 999 mls/hr Sodium Chloride (Normal Saline) 100 mls @ 125 mls/hr IV ASDIRECTED [facility] Ondansetron HCl (Zofran) Confirm Administered Dose 4 mg .ROUTE .STK-MED ONE Stop: 02/17/18 05:23 Last Admin: 02/17/18 05:36 Dose: Not Given Ondansetron HCl (Zofran) 4 mg IVPUSH ONETIME ONE Stop: 02/17/18 05:28 Last Admin: 02/17/18 05:31 Dose: 4 mg
[2018-02-17] MEDS ORDERED: Iopamidol 408 MG/ML 50 ML SDV ONE (09:26)
--- NOTE | 2018-02-17 09:48 | CT ---
EXAM DATE: 02/17/18 PATIENT'S AGE: 47 Patient: MARCIO DIAZ Facility: [place], [place] Site . Site : [id number] Study: CT Abdomen/Pelvis [id number]/2/2018 6:10:02 AM Ordering Physician: Doctor Rloon Final Report: INDICATION: pain, surgery 02-16-2018 to remove right kidney stone and place stent. HISTORY: Recent surgery to remove right ureteral stone and place stent. Pain. COMPARISON: CT of the abdomen and pelvis 02/10/2018. TECHNIQUE: CT of the abdomen pelvis. No intravenous contrast. Coronal/sagittal reconstruction images. FINDINGS: Lung bases: There is no pleural or pericardial effusion. The heart size is normal. There is atelectasis at both lung bases. There is no basilar pneumothorax. Abdomen/pelvis: The hepatic morphology is normal. There is no solid hepatic mass. Low-dense hepatic lesions are too small to further characterize, but most likely benign cysts. Spleen size is normal. There is a low-density splenic lesion also present , too small to further characterize. This measures 7 mm on image 27, series 201. There is no adrenal mass. 3-4 mm stone in the left kidney on image 43, series 201. There is a right double-J ureteral stent. The proximal portion of the stent is coiled within the proximal ureter, rather than the right intrarenal collecting system. There is a 3 mm calcification along the lower pole of the right kidney, which is stable, image 69, series 201. The ureteral stone is not identified along the course of the ureteral stent. There is significant fat stranding and fluid in the right para renal space, with thickening of Gerota`s fascia and the lateroconal fascia. There is also retroperitoneal gas adjacent to the right kidney and right ureter. The distal portion of the stent appears appropriately positioned. There is no contralateral urolith or left-sided hydronephrosis. Prostatic calcifications. There is diverticulosis of the colon. There are no findings for diverticulitis. No evidence for a small bowel or colonic obstruction. Abdominal aortic aneurysm. No adenopathy by size criteria in the retroperitoneum, small bowel mesentery, or pelvis. The bone windows demonstrate no suspicious lytic or blastic bone lesions. The alignment is preserved. On sagittal reconstruction images, there is a Schmorl`s node present at the superior endplate of L5. There is no acute bone abnormality. IMPRESSION: 1. Interval placement of a right double-J ureteral stent. The proximal portion of the stent appears lower than expected, and is in the proximal right ureter rather than the right intrarenal collecting system. 2. There is no urolith identified along the course of the stent. Presumably, the patient has undergone lithotripsy at the time of the procedure. There is a significant amount of gas and fluid in the retroperitoneum, with thickening of Gerota`s fascia and the lateroconal fascia. Ureteral injury is not excluded based on this exam. Urologic consultation is advised. 3. Stable nonobstructive calculus in the left intrarenal collecting system. 4. Case reviewed with Dr. Leon of the emergency department, 02/17/2018, 0635 hours. Dictated by Peter Vargas MD @ 02/17/2018 6:36:07 AM Please note that all CT scans at this facility use dose modulation, iterative reconstruction, and/or weight-based dosing when appropriate to reduce radiation dose to as low as reasonably achievable. Dictated by: Peter Vargas MD @ 02/17/2018 06:36:16 (Electronic Signature) Report Signed by Proxy. [facility]
[2018-02-17] MEDS ORDERED: Methylene Blue 50 MG/10 ML Ampule ONE (10:39)
[2018-02-17] MEDS ORDERED: Belladonna Alkaloids/Opium 16.2-30 MG Supp RECTAL PRN (11:29)
--- NOTE | 2018-02-17 12:09 | PCM.POSTAN ---
POST ANESTHESIA ASSESSMENT - MENTAL STATUS Mental Status: Alert, Oriented - OBSERVATIONS Free Text/Narrative:: To CT for followup exam to confirm stent presence in kidney per Dr Yeboah and Dr Diana order.
--- NOTE | 2018-02-17 12:46 | OR ---
SURGEON: Jaleesa Yeboah M.D. DATE OF PROCEDURE: 02/17/2018 PREOPERATIVE DIAGNOSIS: Ureteral injury. POSTOPERATIVE DIAGNOSIS: Ureteral injury. OPERATIONS: Cystoscopy, double-J stent removal, and the placement of a new double-J stent. DESCRIPTION: The patient was given general anesthesia. He is in dorsal lithotomy position, prepped and draped in sterile drapes. The 25-Romansh cystoscope was introduced in the bladder without difficulty. The double-J stent that was in there was removed. Subsequently, a Glidewire was advanced in the ureter and that appeared to be going outside the ureter and would not go in the right path, so I put the rigid ureteral scope all the way up into the area of trauma and after a few attempts, I was able to get the Glidewire into the right renal pelvis over which then a 6-Romansh 28 cm double-J stent was placed. Positioned into a good degree of certainty, it is in renal pelvis. However, this study will be followed with a CT scan to confirm that because if that is not the case, we will have to put a nephrostomy tube in today. MARICHUY / ANDREY /[id number]
[2018-02-17] MEDS: D5 1/2 NS w/ 20 mEq/L KCl 1,000 ML IV SCH ×2 (12:51→22:09)
[2018-02-17] MEDS ORDERED: HYDROmorphone 4 MG/ML Syringe IVPUSH PRN (12:53)
--- NOTE | 2018-02-17 12:58 | CONS ---
DATE OF CONSULTATION: 02/17/2018 DATE OF : 1970 PRIMARY CARE PHYSICIAN: Daren Higgins M.D. HISTORY OF PRESENT ILLNESS: A 47-year-old presented to the emergency room earlier this morning after having had right ureteroscopy with laser lithotripsy, and double-J stent placement yesterday. At the time of presentation, he was having severe pain. He was treated with Dilaudid. His pain became under control. He had a white blood count of 15,000. His CT scan, which was also done, then showed that the stent is actually outside the upper ureter, it was not in the renal pelvis. There was perirenal and periureteral urinary extravasation. His hemoglobin was normal. His serum creatinine has gone up to 1.7 from 1.4. When the kidney was partially obstructive with the stone compared to two years ago, his creatinine was normal with a GFR of over 60. His GFR today was 47. PHYSICAL EXAMINATION: GENERAL APPEARANCE: Normal. VITAL SIGNS: Normal. He is alert and oriented. His pain appears to be under control. PLAN: I placed a Taylor catheter to make sure that there is no more urine that is being pushed via the stent into the retroperitoneal space and I explained to him that I need to go back to take the current stent out and attempt to put a new double- J stent. If that does not work, then we will go to a percutaneous nephrolithotomy to drain the kidney and left ureter to heal. He understands that. MARICHUY / ANDREY /[id number]
[2018-02-17] MEDS ORDERED: ceFAZolin 1 GM in Premix Bag 1 BAG IV SCH (13:00)
[2018-02-17] MEDS: DEXTROSE 5% IV SCH ×2 (14:01)
[2018-02-17] MEDS: TOBRAMYCIN IV SCH ×2 (14:01)
[2018-02-17] MEDS: WATER IV SCH ×2 (14:01)
[2018-02-17] MEDS: Bacitracin Oint 28.35 GM Tube TOP SCH ×2 (14:09→22:04)
[2018-02-17] MEDS ORDERED: Acetaminophen 325 MG Tab PO PRN (14:50)
[2018-02-17] MEDS ORDERED: Ondansetron 4 MG/2 ML SDV IVPUSH PRN (14:50)
--- NOTE | 2018-02-17 16:50 | CT ---
CT of the abdomen and pelvis without contrast. HISTORY: Ureteral injury TECHNIQUE: Axial CT images were obtained of the abdomen and pelvis without contrast. Coronal and sagi ttal reconstructions obtained. FINDINGS: Dependent atelectasis noted bilaterally. There is a tiny cyst within the left hepatic lobe. The spleen, adrenal glands, and pancreas appear un remarkable for noncontrast examination. The gallbladder appears normal. There is no bulky retroperit barraza lymphadenopathy. Small amount of perirenal, retroperitoneal and fluid within the right pericoli c gutter. There is a right-sided nephroureteral stent noted with the proximal aspect likely just superior to th e renal pelvis. Contrast was administered through the bladder and extravasates within the perirenal s pace. A small nonobstructing left nephrolithiasis. The large and small bowel are normal in caliber without evidence of obstruction. The appendix appears normal. There is no bulky pelvic lymphadenopathy. No free fluid. Small amount of free air is noted w ithin the right periureteral soft tissues. There is a Taylor catheter within the bladder. The visualized osseous structures appear normal. IMPRESSION: 1. An additional stent was placed within the right ureter in a retrograde fashion however the proxima l pigtail appears external to the urinary tract. 2. Small amount of retroperitoneal and free fluid noted, likely extravasation of urine. 3. Small nonobstructing left nephrolithiasis. 4. Mild dependent atelectasis.
[2018-02-17] MEDS: HYDROmorphone 2 MG/ML SDV IVPUSH PRN (19:10)
[2018-02-18] MEDS: DEXTROSE 5% IV SCH ×4 (01:40→14:06)
[2018-02-18] MEDS: TOBRAMYCIN IV SCH ×4 (01:40→14:06)
[2018-02-18] MEDS: WATER IV SCH ×4 (01:40→14:06)
[2018-02-18] MEDS: Ciprofloxacin in D5W 400 MG in Premix Bag 1 BAG IV SCH ×4 (05:51→17:50)
[2018-02-18] MEDS: Bacitracin Oint 28.35 GM Tube TOP SCH ×2 (05:54→17:50)
[2018-02-18 06:39] LABS: CHLORIDE,CL 108 mmol/L (98-107); SODIUM,NA 142 mmol/L (136-148)
[2018-02-18] MEDS: D5 1/2 NS w/ 20 mEq/L KCl 1,000 ML IV SCH (06:49)
--- NOTE | 2018-02-18 08:24 | PCM.PREANE ---
Preanesthetic Assessment - Anesthesia/Transfusion/Family Hx Anesthesia History: Prior Anesthesia Without Reaction Family History of Anesthesia Reaction: No Transfusion History: No Prior Transfusion(s) Intubation History: Unknown - Review of Systems General: No Symptoms Pulmonary: No Symptoms Cardiovascular: No Symptoms Gastrointestinal: No Symptoms Neurological: No Symptoms Other: Reports: None, Throat Pain (minor irritation from yesterday OET) - Physical Assessment NPO Status Date: 02/16/18 NPO Status Time: 18:00 (ice chips this am) O2 Sat by Pulse Oximetry: 95 Respiratory Rate: 19 Vital Signs: Last Vital Signs Temp 37.4 C 02/18/18 04:06 Pulse 72 02/18/18 04:06 Resp 19 02/18/18 04:06 BP 152/88 H 02/18/18 04:06 Pulse Ox 95 02/18/18 04:06 Height: 1.83 m Weight: 105.007 kg ASA Class: 2 Mental Status: Alert & Oriented x3 Airway Class: Mallampati = 1 Dentition: Reports: Normal Dentition ROM/Head Extension: Full Lungs: Clear to Auscultation, Normal Respiratory Effort Cardiovascular: Regular Rate, Regular Rhythm - Lab Values: Laboratory Last Values WBC 11.51 K/uL (4.0-11.0) H 02/18/18 05:50 RBC 4.15 M/uL (4.50-5.90) L 02/18/18 05:50 Hgb 12.0 g/dL (13.0-17.0) L 02/18/18 05:50 Hct 35.9 % (38.0-50.0) L 02/18/18 05:50 MCV 86.5 fL (80.0-98.0) 02/18/18 05:50 MCH 28.9 pg (27.0-32.0) 02/18/18 05:50 MCHC 33.4 g/dL (31.0-37.0) 02/18/18 05:50 RDW Std Deviation 48.0 fl (28.0-62.0) 02/18/18 05:50 RDW Coeff of Clara 15 % (11.0-15.0) 02/18/18 05:50 Plt Count 205 K/uL (150-400) 02/18/18 05:50 MPV 9.80 fL (7.40-12.00) 02/18/18 05:50 Neut % (Auto) 76.6 % (48.0-80.0) 02/18/18 05:50 Lymph % (Auto) 14.9 % (16.0-40.0) L 02/18/18 05:50 [place] % (Auto) 8.3 % (0.0-15.0) 02/18/18 05:50 Eos % (Auto) 0.1 % (0.0-7.0) 02/18/18 05:50 Baso % (Auto) 0.1 % (0.0-1.5) 02/18/18 05:50 Neut # (Auto) 8.8 K/uL (1.4-5.7) H 02/18/18 05:50 Lymph # (Auto) 1.7 K/uL (0.6-2.4) 02/18/18 05:50 [place] # (Auto) 1.0 K/uL (0.0-0.8) H 02/18/18 05:50 Eos # (Auto) 0.0 K/uL (0.0-0.7) 02/18/18 05:50 Baso # (Auto) 0.0 K/uL (0.0-0.1) 02/18/18 05:50 Nucleated RBC % 0.0 /100WBC 02/18/18 05:50 Nucleated RBCs # 0 K/uL 02/18/18 05:50 Lactate 1.1 mmol/L (0.20-2.00) 02/17/18 06:25 Sodium 142 mmol/L (136-148) 02/18/18 05:50 Potassium 4.0 mmol/L (3.5-5.1) 02/18/18 05:50 Chloride 108 mmol/L (98-107) H 02/18/18 05:50 Carbon Dioxide 26.5 mmol/L (21.0-32.0) 02/18/18 05:50 BUN 10 mg/dL (7.0-18.0) 02/18/18 05:50 Creatinine 1.0 mg/dL (0.8-1.3) 02/18/18 05:50 Est Cr Clr Drug Dosing 98.08 mL/min 02/18/18 05:50 Estimated GFR (MDRD) > 60.0 ml/min 02/18/18 05:50 Glucose 142 mg/dL (74-106) H 02/18/18 05:50 Calcium 8.1 mg/dL (8.5-10.1) L 02/18/18 05:50 Total Bilirubin 0.8 mg/dL (0.2-1.0) 02/17/18 05:04 AST 8 IU/L (15-37) L 02/17/18 05:04 ALT 15 IU/L (14-63) 02/17/18 05:04 Alkaline Phosphatase 61 U/L (46-116) 02/17/18 05:04 Total Protein 7.5 g/dL (6.4-8.2) 02/17/18 05:04 Albumin 3.9 g/dL (3.4-5.0) 02/17/18 05:04 Globulin 3.6 g/dL (2.0-3.5) H 02/17/18 05:04 Albumin/Globulin Ratio 1.1 (1.3-2.8) L 02/17/18 05:04 Urine Color YELLOW 02/17/18 05:20 Urine Appearance CLOUDY 02/17/18 05:20 Urine pH 6.0 (5.0-8.0) 02/17/18 05:20 Ur Specific [place] 1.020 (1.001-1.035) 02/17/18 05:20 Urine Protein 100 mg/dL (NEGATIVE) 02/17/18 05:20 Urine Glucose (UA) NEGATIVE mg/dL (NEGATIVE) 02/17/18 05:20 Urine Ketones 40 mg/dL (NEGATIVE) H 02/17/18 05:20 Urine Occult Blood LARGE (NEGATIVE) H 02/17/18 05:20 Urine Nitrite NEGATIVE (NEGATIVE) 02/17/18 05:20 Urine Bilirubin NEGATIVE (NEGATIVE) 02/17/18 05:20 Urine Urobilinogen 0.2 EU/dL (<2.0) 02/17/18 05:20 Ur Leukocyte Esterase SMALL (NEGATIVE) 02/17/18 05:20 Urine RBC 105-110 (0-2/HPF) 02/17/18 05:20 Urine WBC 1-4 (0-5/HPF) 02/17/18 05:20 Ur Epithelial Cells RARE (NONE-FEW) 02/17/18 05:20 Urine Bacteria RARE (NEGATIVE) 02/17/18 05:20 - Allergies Allergies/Adverse Reactions: Allergies Allergy/AdvReac Type Severity Reaction Status Date / Time grass pollen-perennial rye, Allergy Other Verified 02/17/18 04:45 standar [grass poll-perennial rye,std] - Blood Blood Available: No Product(s) Available: None - Acknowledgements Anesthesia Type Planned: General Anesthesia Pt an Appropriate Candidate for the Planned Anesthesia: Yes Alternatives and Risks of Anesthesia Discussed w Pt/Guardian: Yes Pt/Guardian Understands and Agrees with Anesthesia Plan: Yes Additional Comments: developing CKD3, Cr=1.7 with cr clear=43. PLAN: GET with TIVA during time in radiology department PreAnesthesia Questionnaire Respiratory History: Reports: Asthma Other Respiratory History: hx of asthma as a child- mostly allergy related- has not had an inhaler for many years Gastrointestinal History: Reports: Other (See Below) Other Gastrointestinal History: occasional heartburn Genitourinary History: Reports: Renal Calculus Other Genitourinary History: passed a kidney stone about 20 years ago Neurological History: Reports: Other (See Below) Other Neuro History: hx of motion sickness Endocrine/Metabolic History: Reports: Obesity/BMI 30+ - Infectious Disease History Infectious Disease History: Reports: Chicken Pox, Shingles - SUBSTANCE USE Smoking Status *Q: Never Smoker Tobacco Use Within Last Twelve Months: No Second Hand Smoke Exposure: No Recreational Drug Use History: No - HOME MEDS Home Medications: Home Meds Hydrocodone/Acetaminophen [[place] 7.5-325 Tablet] 1 - 2 tab PO Q4H PRN 02/13/18 [ History] Ondansetron HCl [Zofran] 8 mg PO BID PRN 02/13/18 [History] Tamsulosin [Flomax] 0.8 mg PO BEDTIME 02/13/18 [History] cephALEXin [Keflex] 1 cap PO BID 02/17/18 [History] - CURRENT (IN HOUSE) MEDS Current Meds: Current Medications Acetaminophen (Tylenol) 650 mg PO Q4H PRN PRN Reason: Headache Last Admin: 02/17/18 23:01 Dose: 650 mg Bacitracin (Bacitracin Oint) 1 gm TOP TID BA Last Admin: 02/18/18 05:54 Dose: 1 gm Belladonna Alkaloids/Opium (B & O Supprettes No. 15a) 1 supp RECTAL Q6H PRN PRN Reason: Bladder Spasms Hydromorphone HCl (Dilaudid) 2 mg IVPUSH Q4H PRN PRN Reason: pain Last Admin: 02/17/18 19:10 Dose: 2 mg Ciprofloxacin/Dextrose 400 mg/ (Premix) 200 mls @ 200 mls/hr IV Q12H [facility] Last Admin: 02/18/18 05:51 Dose: 200 mls/hr Sodium Chloride (Normal Saline) 1,000 mls @ 125 mls/hr IV ASDIRECTED [facility] Last Admin: 02/17/18 07:02 Dose: 125 mls/hr Potassium Chloride/Dextrose/Sod Cl (D5 1/2 Ns W/ 20 Meq/L Kcl) 1,000 mls @ 125 mls/hr IV ASDIRECTED [facility] Last Admin: 02/18/18 06:49 Dose: 125 mls/hr Tobramycin 100 mg/ Dextrose/ (Water) 52.5 mls @ 105 mls/hr IV Q12H [facility] Last Admin: 02/18/18 01:40 Dose: 105 mls/hr Ondansetron HCl (Zofran) 4 mg IVPUSH Q4H PRN PRN Reason: Nausea/Vomiting Discontinued Medications Fentanyl (Sublimaze) 50 mcg IVPUSH ONETIME ONE Stop: 02/17/18 05:07 Last Admin: 02/17/18 05:12 Dose: 50 mcg Hydromorphone HCl (Dilaudid) 2 mg IVPUSH ONETIME ONE Stop: 02/17/18 05:26 Last Admin: 02/17/18 05:31 Dose: 2 mg Hydromorphone HCl (Dilaudid) 2 mg IVPUSH ONETIME ONE Stop: 02/17/18 06:53 Last Admin: 02/17/18 07:00 Dose: 2 mg Hydromorphone HCl (Dilaudid) 2 mg IVPUSH Q4H PRN PRN Reason: pain Sodium Chloride (Normal Saline) 1,000 mls @ 999 mls/hr IV STAT ONE Stop: 02/17/18 06:11 Last Admin: 02/17/18 05:18 Dose: 999 mls/hr Sodium Chloride (Normal Saline) 100 mls @ 125 mls/hr IV ASDIRECTED [facility] Cefazolin Sodium/Dextrose 1 gm (/ Premix) 50 mls @ 100 mls/hr IV Q8H [facility] Last Admin: 02/17/18 13:19 Dose: 100 mls/hr Iopamidol (Isovue-200 (41%)) Confirm Administered Dose 50 ml .ROUTE .STK-MED ONE Stop: 02/17/18 09:27 Methylene Blue (Provayblue) Confirm Administered Dose 50 mg .ROUTE .STK-MED ONE Stop: 02/17/18 10:40 Ondansetron HCl (Zofran) Confirm Administered Dose 4 mg .ROUTE .STK-MED ONE Stop: 02/17/18 05:23 Last Admin: 02/17/18 05:36 Dose: Not Given Ondansetron HCl (Zofran) 4 mg IVPUSH ONETIME ONE Stop: 02/17/18 05:28 Last Admin: 02/17/18 05:31 Dose: 4 mg Tobramycin (Nebcin) 160 mg .ROUTE .STK-MED ONE Stop: 02/17/18 10:01
--- NOTE | 2018-02-18 08:37 | CR ---
EXAMINATION: Retrograde pyelogram HISTORY: Stent placement COMPARISON: CT from the same day TECHNIQUE: A total of 12 fluoroscopic images provided FINDINGS/IMPRESSION: Operative control films demonstrate selection of the right ureter. Retrograde co ntrast administration demonstrates extravasation just distal to the renal pelvis. Subsequent stent pl acement demonstrates a pigtail within the region of the renal pelvis.
--- NOTE | 2018-02-18 09:02 | PCM48HPAN ---
Post Anesthesia Note - EVALUATION WITHIN 48HRS OF ANESTHETIC Vital Signs in Normal Range: Yes Patient Participated in Evaluation: Yes Respiratory Function Stable: Yes Airway Patent: Yes Cardiovascular Function Stable: Yes Hydration Status Stable: Yes Pain Control Satisfactory: Yes Nausea and Vomiting Control Satisfactory: Yes Mental Status Recovered: Yes Resp Rate: 19 - COMMENTS/OBSERVATIONS Free Text/Narrative:: Pt is doing well from the previous procedures. He is scheduled for more surgical interventions today.
[2018-02-18] MEDS ORDERED: Iopamidol 408 MG/ML 50 ML SDV ONE (09:16)
[2018-02-18] MEDS ORDERED: Lidocaine 2% Jelly 30 ML Tube ONE (09:16)
[2018-02-18] MEDS ORDERED: Midazolam 1 MG/ML 2 ML SDV ONE (09:17)
[2018-02-18] MEDS ORDERED: fentaNYL 100 MCG/2 ML SDV ONE ×2 (09:18→11:19)
[2018-02-18] MEDS ORDERED: Ondansetron 4 MG/2 ML SDV ONE (09:19)
[2018-02-18] MEDS ORDERED: Rocuronium 10 MG/ML 10 ML Syringe ONE (09:20)
[2018-02-18] MEDS ORDERED: Propofol 200 MG/20 ML SDV ONE (09:20)
[2018-02-18] MEDS: HYDROmorphone 2 MG/ML SDV IVPUSH PRN (09:27)
[2018-02-18] MEDS ORDERED: ePHEDrine 50 MG/ML SDV ONE (11:34)
[2018-02-18] MEDS ORDERED: Glycopyrrolate 0.2 MG/ML SDV ONE ×2 (11:38)
[2018-02-18] MEDS ORDERED: Neostigmine Methylsulfate 1 MG/ML 5 ML Syringe ONE ×2 (11:38)
[2018-02-18] MEDS ORDERED: Desflurane 240 ML Bottle ONE (11:42)
--- NOTE | 2018-02-18 12:10 | PCM.POSTAN ---
POST ANESTHESIA ASSESSMENT - MENTAL STATUS Mental Status: Alert, Oriented - RESPIRATORY Respiratory Status: Respiratory Rate WNL, Airway Patent, O2 Saturation Stable - CARDIOVASCULAR CV Status: Pulse Rate WNL, Blood Pressure Stable - GASTROINTESTINAL GI Status: No Symptoms - POST OP HYDRATION Hydration Status: Adequate & Stable
--- NOTE | 2018-02-18 13:14 | OR ---
SURGEON: Jaleesa Yeboah M.D. DATE OF PROCEDURE: 02/18/2018 PREOPERATIVE DIAGNOSIS: Ureteral injury. POSTOPERATIVE DIAGNOSIS: Ureteral injury. OPERATIONS: Cystoscopy, double-J stent removal, and replacement after an antegrade guidewire was inserted in the Radiology. DESCRIPTION: The patient was given adequate sedation, placed in the frogleg position. The 22- Greenlandic cystoscope was introduced in the bladder without difficulty. The double- J stent was grasped and removed. The patient was then transported to Radiology where percutaneous access into the right kidney under CT guidance was accomplished and a Glidewire was advanced through the kidney all the way up into the bladder. The patient was then moved back to the operating suite where he was placed in dorsal lithotomy position. The guide was pulled through enough to have access to the bladder and placing a 6-Greenlandic 26 centimeter double-J stent over the Glidewire. was done and the position was confirmed with fluoroscopy. The Glidewire was removed by pulling it through the distal. The Taylor catheter was put back in the bladder. The patient will be discharged today. MARICHUY / ANDREY /[id number]
--- NOTE | 2018-02-18 15:43 | CR ---
EXAMINATION: CT-guided wire placement into the right renal collecting system HISTORY: Ureteral rupture, rendezvous procedure needed. COMPARISON: CT dated 02/17/2018. TECHNIQUE: The procedure, risks, and benefits were discussed with the patient. Written informed conse nt was obtained. Manager Of It imaging was obtained. An adequate location was noted within the upper pole pos terior calyx. The overlying area was marked. The region was sterilely prepped and draped. 1% lidocain e was administered for local anesthesia. Using CT guidance a 21-gauge needle was advanced into the [facility] renal collecting system. Urine return was noted. An 018 wire was advanced into the collecting sy stem and a subsequent small gauge dilator was advanced over the wire. The 018 wire was replaced with an 038 Glidewire. This was advanced easily through the ureter and was confirmed coiled within the heidy dder. IMPRESSION: 1. Successful CT-guided percutaneous right renal collecting system access for cystoscopy rendezvous f or stent placement.
--- NOTE | 2018-02-18 16:02 | CR ---
EXAMINATION: Cystoscopy HISTORY: Stent placement COMPARISON: CT from the same day TECHNIQUE: 3 fluoroscopic images provided FINDINGS/IMPRESSION: Operative control films demonstrate a wire within the right renal collecting sys tem with subsequent stent placement. The proximal pigtail portion projects over the right renal pelvi s with opacification of the calyces.
--- NOTE | 2018-02-18 22:35 | DISCH ---
DATE OF DISCHARGE: PRIMARY CARE PHYSICIAN: Daren Higgins M.D. He was readmitted to the hospital this last Friday day before yesterday with severe abdominal pain. Investigation included a CT scan that showed a ureteral stent to be outside the ureter. He was admitted to the hospital and was taken back to the operating room and that was done yesterday where a new stent was put in and appeared to be in right position on fluoroscopy. However, CT scan revealed that the stent was actually again outside the ureter graft around the renal pelvis, so today, he was taken to the operating room, where the stent was removed. He was then transported to Radiology department where under CT guidance, access into the right renal pelvis was obtained and a Glidewire was advanced through that access all the way down into the bladder, so I took him back to the operating room where through the cystoscopy, the Glidewire was partly pulled out and over which, a 6-Korean 28 cm double-J stent was placed. The position was confirmed on fluoroscopy. The bladder was emptied. The stent was pulled out through the bladder. Did not want risking pushing the proximal end of the ureteral stent through the kidney . Postoperatively, he did very well and he was sent home this evening on 02/18/2018. He has Lorcet 7.5-325 at home that he can use for pain. He is sent home on Keflex 500 four times a day for the next 3 days. I will see him a week from today to take the double-J stent out. He is instructed to take the Taylor catheter out three days from today. MARICHUY / ANDREY /[id number]
== END 2018-02-18 20:15 | disposition home or self-care (01) ==
LOC: MW.ED 04:30 → MW.MS 08:05
PROVIDERS: ADMIT Urology; ATTEND Urology
DX: S37.10XA Unspecified injury of ureter, initial encounter (principal); T83.123A Displacement of other urinary stents, initial encounter; J45.909 Unspecified asthma, uncomplicated; E66.9 Obesity, unspecified; Z68.31 Body mass index [BMI] 31.0-31.9, adult; Z87.442 Personal history of urinary calculi; X58.XXXA Exposure to other specified factors, initial encounter
CPT/HCPCS: 36415; 50432; 52332; 74176; 76000; 76001; 80048; 80053; 81001; 83605; 85025; 87040; 87086; 96361; 96365; 96375; 96376; 99285; A9270; C1769; C1874; J0690; J0744; J1170; J2250; J2405; J2704; J3010; J3260; J3480; J3490; J7040; J7060; Q9966; C2625; G0378